=== PATIENT | male | born 1950 | race Caucasian/White ===

== ENCOUNTER 2017-09-09 08:35 | Emergency (ER) | payer MEDICARE, OTHER ==
[2017-09-09 08:39] VITALS: BP 146/96; PULSE 83; TEMP 98.8; BMI 31.5
--- NOTE | 2017-09-09 08:57 | PDOC ---
History of Present Illness - General Chief Complaint: Pain Stated Complaint: ABDOMINAL PAIN Time Seen by Provider: 09/09/17 08:52 History Source: Patient Exam Limitations: Language Barrier ([employer] used [id number]) - History of Present Illness Initial Comments: 09/09/17 09:47 Patient is a 66-year-old male who presents to emergency department today with a lump to his left abdomen. Patient states that he noticed the lump approximately 1 week ago. He states it does not hurt but it has grown in size. Denies fevers, chills, nausea, vomiting and diarrhea. Past History - Travel Traveled outside of the country in the last 30 days: No Close contact w/someone who was outside of country & ill: No - Past Medical History Allergies/Adverse Reactions: Allergies Allergy/AdvReac Type Severity Reaction Status Date / Time No Known Allergies Allergy Verified 09/09/17 08:39 Home Medications: Ambulatory Orders Aspirin [Aspirin EC] 81 mg PO DAILY 11/02/14 Cyclobenzaprine HCl [Flexeril -] 10 mg PO TID PRN 11/02/14 Glipizide Xl [Glucotrol Xl -] 10 mg PO DAILY 11/02/14 Pioglitazone HCl [Actos -] 30 mg PO DAILY 11/02/14 Simvastatin [Zocor -] 40 mg PO HS 11/02/14 COPD: No Diabetes: Yes HTN: Yes Hypercholesterolemia: Yes - Immunization History Immunization Up to Date: Yes - Suicide/Smoking/Psychosocial Hx Smoking History: Never smoked Hx Alcohol Use: No Substance Use Type: None Review of Systems - Review of Systems Able to Perform ROS?: Yes Comments:: 09/09/17 08:57 CONSTITUTIONAL: Absent: fever, chills, diaphoresis, generalized weakness, malaise, loss of appetite HEENT: Absent: rhinorrhea, nasal congestion, throat pain, throat swelling, difficulty swallowing, mouth swelling, ear pain, eye pain, visual Changes CARDIOVASCULAR: Absent: chest pain, loss of consciousness, palpitations, irregular heart rate, peripheral edema RESPIRATORY: Absent: cough, shortness of breath, dyspnea with exertion, orthopnea, wheezing, stridor, hemoptysis GASTROINTESTINAL: Absent: abdominal pain, abdominal distension, nausea, vomiting, diarrhea, constipation, melena, hematochezia GENITOURINARY: Absent: dysuria, frequency, urgency, hesitancy, hematuria, flank pain, genital pain MUSCULOSKELETAL: Absent: myalgia, arthralgia, joint swelling SKIN: Present: Lump to L abdomen Absent: rash, itching, pallor HEMATOLOGIC/IMMUNOLOGIC: Absent: easy bleeding, easy bruising, lymphadenopathy, frequent infections ENDOCRINE: Absent: unexplained weight gain, unexplained weight loss, heat intolerance, cold intolerance NEUROLOGIC: Absent: headache, focal weakness or paresthesias, dizziness, unsteady gait, seizure, mental status changes, bladder or bowel incontinence PSYCHIATRIC: Absent: anxiety, depression, suicidal or homicidal ideation, hallucinations. Is the patient limited [place] proficient: No *Physical Exam - Vital Signs Last Vital Signs Temp Pulse Resp BP Pulse Ox 98.8 F 83 18 146/96 99 09/09/17 08:37 09/09/17 08:37 09/09/17 08:37 09/09/17 08:37 09/09/17 08:37 - Physical Exam Comments: 09/09/17 08:57 GENERAL: Well developed, well nourished. Awake and alert. No acute distress. ABDOMINAL: Soft. Non-tender. Non-distended. No rebound or guarding. No organomegaly. Normoactive bowel sounds. MUSCULOSKELETAL Normal range of motion at all joints. No bony deformities or tenderness. No CVA tenderness. EXTREMITIES: No cyanosis. No clubbing. No edema. No calf tenderness. SKIN: Mobile, kamilla sized, round mass felt in the subcutaneous tissue of the L abdomen. Warm and dry. Normal capillary refill. No rashes. No jaundice. NEUROLOGICAL: Alert, awake, appropriate. Cranial nerves 2-12 intact. No deficits to light touch and temperature in face, upper extremities and lower extremities. No motor deficits in the in face, upper extremities and lower extremities. Normoreflexic in the upper and lower extremities. Normal speech. Toes are down- going bilaterally. Gait is normal without ataxia. PSYCHIATRIC: Cooperative. Good eye contact. Appropriate mood and affect. Medical Decision Making - Medical Decision Making 09/09/17 09:59 Patient is a 66-year-old male who presents emergency department today complaining of a lump to his left abdomen. On exam the bump is mobile approximately the size of a nickel and round. Ultrasound obtained is patient was concerned it could possibly be cancer. Ultrasound results show possible fibroma versus fibrolipoma. Results discussed with the patient. Will give a surgical consult in case the bump ever becomes painful or larger. Return precautions given. Patient says all discharge instructions and all questions were answered. *DC/Admit/Observation/Transfer Diagnosis at time of Disposition: Fibrolipoma of skin - Discharge Dispostion Disposition: HOME Condition at time of disposition: Stable Decision to Admit order: No - Referrals Referrals: Pop Kennedy MD [Staff Physician] - - Patient Instructions Printed Discharge Instructions: Lipoma Additional Instructions: Your evaluated for a lump on you abdomen. The ultrasound shows that it is most likely a benign lipoma (fatty tissue deposit) It may fluctuate in size. If it starts to get larger or if it is painful please follow-up with surgery. A referral has been provided to you. Follow-up with your primary care doctor this week. Return to the emergency department if you have pain, fevers, chills, nausea, vomiting, or have any changes in your symptoms. Hernandez evaluado por un bulto en hernandez abdomen. El ultrasonido muestra que es ms probable que sea un lipoma willy (depsito de tejido adiposo) Puede fluctuar en tamao. Si comienza a agrandarse o si es doloroso, realice un seguimiento con ciruga. Se le juarez proporcionado artis referencia. Brayden un seguimiento con hernandez mdico de atencin primaria esta semana. Regrese al departamento de emergencias si tiene dolor, fiebre, escalofros, n useas, vmitos o algn cambio en princess sntomas. Print Language: NIGERIEN - Post Discharge Activity
== END 2017-09-09 10:43 | disposition home or self-care (01) ==
LOC: JER 08:35 → JERFT 08:35
DX: D17.79 Benign lipomatous neoplasm of other sites (principal); I10 Essential (primary) hypertension; E78.00 Pure hypercholesterolemia, unspecified; E11.9 Type 2 diabetes mellitus without complications; Z79.84 Long term (current) use of oral hypoglycemic drugs
CPT/HCPCS: 76705; 99281-25

== ENCOUNTER 2019-01-08 08:34 | Emergency (ER) | payer MEDICARE, OTHER ==
[2019-01-08 08:46] VITALS: BMI 31.5
--- NOTE | 2019-01-08 10:01 | PDOC ---
History of Present Illness - General Chief Complaint: Diarrhea Stated Complaint: DIARRHEA X 4 WEEKS Time Seen by Provider: 01/08/19 09:00 History Source: Patient Exam Limitations: No Limitations - History of Present Illness Travel History: No Initial Comments: 01/08/19 10:00 68-year-old male presents to ED with malaise of brown watery stool for the past 4 weeks nausea vomiting fever or chills. Patient does state was sent [place] and symptoms began approximately 3 days into his vacation. Patient states symptoms continue and are aggravated but alleviated with Imodium. Patient denies GI history including diverticulitis, H pylori, or other GI disorders. Patient denies weight loss, change in appetite or abdominal distention. Timing/Duration: reports: intermittent Quality: reports: mild, cramping Abdominal Pain Onset Location: reports: RLQ, LLQ Pain Radiation: reports: no radiation Activities at Onset: reports: none Aggravating Factors: improves with: None Alleviating Factors: improves with: None Past History - Travel Traveled outside of the country in the last 30 days: No Close contact w/someone who was outside of country & ill: No - Past Medical History Allergies/Adverse Reactions: Allergies Allergy/AdvReac Type Severity Reaction Status Date / Time No Known Allergies Allergy Verified 01/08/19 08:46 Home Medications: Ambulatory Orders Aspirin [Aspirin EC] 81 mg PO DAILY 11/02/14 Cyclobenzaprine HCl [Flexeril -] 10 mg PO TID PRN 11/02/14 Glipizide Xl [Glucotrol Xl -] 10 mg PO DAILY 11/02/14 Pioglitazone HCl [Actos -] 30 mg PO DAILY 11/02/14 Simvastatin [Zocor -] 40 mg PO HS 11/02/14 Diphenoxylate 2.5/Atropine.025 [Lomotil -] 1 combo PO DAILY PRN #30 tablet MDD 1 01/08/19 COPD: No Diabetes: Yes HTN: Yes Hypercholesterolemia: Yes - Immunization History Immunization Up to Date: Yes - Suicide/Smoking/Psychosocial Hx Smoking History: Never smoked Have you smoked in the past 12 months: No Information on smoking cessation initiated: No Hx Alcohol Use: No Drug/Substance Use Hx: No Substance Use Type: None Patient Lives Alone: No Lives with/in: spouse/SO Review of Systems - Review of Systems Able to Perform ROS?: Yes Constitutional: No: Symptoms Reported HEENTM: No: Symptoms Reported Respiratory: No: Symptoms reported Cardiac (ROS): No: Symptoms Reported ABD/GI: Yes: Diarrhea, Abdominal cramping : No: Symptoms Reported Musculoskeletal: No: Symptoms Reported Integumentary: No: Symptoms Reported Neurological: No: Symptoms reported Hematologic/Lymphatic: No: Symptoms Reported *Physical Exam - Vital Signs Last Vital Signs Temp Pulse Resp BP Pulse Ox 97.8 F 66 17 147/85 100 01/08/19 08:41 01/08/19 08:41 01/08/19 08:41 01/08/19 08:41 01/08/19 08:41 - Physical Exam General Appearance: Yes: Nourished, Appropriately Dressed. No: Apparent Distress HEENT: negative: Pale Conjunctivae Respiratory/Chest: positive: Lungs Clear, Normal Breath Sounds. negative: Respiratory Distress, Accessory Muscle Use Cardiovascular: positive: Regular Rhythm, Regular Rate. negative: Murmur Gastrointestinal/Abdominal: positive: Normal Bowel Sounds, Soft. negative: Distended, Guarding, Tenderness Musculoskeletal: negative: CVA Tenderness Extremity: positive: Normal Range of Motion Integumentary: positive: Normal Color, Warm, Moist Neurologic: positive: Motor Strength 5/5 (AMBULATORY) ED Treatment Course - LABORATORY CBC & Chemistry Diagram: 01/08/19 08:49 01/08/19 08:49 - RADIOLOGY Radiology Studies Ordered: Category Date Time Status ABDOMEN & PELVIS CT WITH CONTR [CT] Stat CT Scan 01/08/19 09:02 Ordered Medical Decision Making - Medical Decision Making 01/08/19 10:03 Chief complaint: Brown watery stool approximately 4 times a day for the past month. Patient states symptoms began 3 days after arriving in [facility]. Patient denies fever, chills and states symptoms do resolve with Imodium but only to return the next day. Patient denies weight loss, change in appetite or abdominal distention. Exam: Appear normal, distention no abdominal tenderness. Plan: Stool specimens including C. difficile, stool culture and ovum parasite. Patient also ordered for basic labs and abdominal CT with contrast. 01/08/19 14:18 Laboratory Tests 01/08/19 01/08/19 08:49 08:49 WBC 5.1 Hgb 13.3 Hct 39.2 Absolute Neuts (auto) 2.7 Sodium 138 Potassium 4.5 Chloride 100 Carbon Dioxide 34 H Anion Gap 4 L BUN 17.4 Creatinine 0.9 Random Glucose 174 H Calcium 9.5 Total Bilirubin 0.7 AST 9 L ALT 16 Alkaline Phosphatase 67 Total Protein 7.4 Albumin 4.1 Cl diff - on preliminary report. 01/08/19 14:[address] shows no discrete inflammatory changes of bowels. Mild adrenal thickening which may be on the basis of hyperplasia or subcentimeter ademonas *DC/Admit/Observation/Transfer Diagnosis at time of Disposition: Diarrhea - Discharge Dispostion Disposition: HOME Condition at time of disposition: Good - Prescriptions Prescriptions: Diphenoxylate 2.5/Atropine.025 [Lomotil -] 1 combo PO DAILY PRN #30 tablet MDD 1 PRN Reason: Diarrhea - Referrals Referrals: Faheem Elliott MD [Primary Care Provider] - - Patient Instructions Printed Discharge Instructions: DI for Diarrhea and Traveler's Diarrhea -- Adult Additional Instructions: Please take lomotil as prescribed. Follow diet as discussed. You will be contacted of your stool results - Post Discharge Activity
[2019-01-08 10:06] LABS: BASO % 0.7 % (0-2.0); EOS % 3.6 % (0-4.5); HEMATOCRIT 39.2 % (35.4-49); HEMOGLOBIN 13.3 GM/dL (11.7-16.9); LYMPH % 36.1 % (8-40); MCH 28.1 pg (25.7-33.7); MEAN CELL VOLUME 82.8 fl (80-96); MONO % 6.5 % (3.8-10.2); NEUT % 53.1 % (42.8-82.8); PLATELET COUNT 282 K/MM3 (134-434); RBC 4.73 M/mm3 (4.00-5.60); RDW 14.6 % (11.9-15.9); WHITE BLOOD COUNT 5.1 K/mm3 (4.0-10.0)
[2019-01-08 10:18] LABS: ALBUMIN 4.1 g/dl (3.4-5.0); BILIRUBIN,TOTAL 0.7 mg/dL (0.2-1); BLOOD UREA NITROGEN 17.4 mg/dL (7-18); CALCIUM 9.5 mg/dL (8.5-10.1); CREATININE 0.9 mg/dL (0.55-1.3); POTASSIUM 4.5 mmol/L (3.5-5.1); TOT PROT 7.4 g/dl (6.4-8.2)
[2019-01-08 14:46] VITALS: BP 138/82; PULSE 78; TEMP 98.8
== END 2019-01-08 14:15 | disposition home or self-care (01) ==
LOC: JER 08:34
DX: R19.7 Diarrhea, unspecified (principal); I10 Essential (primary) hypertension; E78.00 Pure hypercholesterolemia, unspecified; E11.9 Type 2 diabetes mellitus without complications; Z79.84 Long term (current) use of oral hypoglycemic drugs
CPT/HCPCS: 36415; 74177-TC; 80053; 85025; 87045; 87046; 87324; 87449; 99283-25

== ENCOUNTER 2021-01-07 09:11 | Emergency (ER) | payer MEDICARE ==
[2021-01-07 09:16] VITALS: BP 166/91; PULSE 68; BMI 30.1
[2021-01-07 11:26] LABS: BASO % 1.2 % (0-2.0); EOS % 4.8 % (0-4.5); HEMATOCRIT 35.2 % (35.4-49); HEMOGLOBIN 12.2 GM/dL (11.7-16.9); LYMPH % 49.9 % (8-40); MCH 28.3 pg (25.7-33.7); MCHC 34.6 g/dl (32.0-35.9); MEAN CELL VOLUME 81.7 fl (80-96); MEAN PLT VOLUME 8.9 fl (7.5-11.1); MONO % 7.9 % (3.8-10.2); NEUT % 36.2 % (42.8-82.8); PLATELET COUNT 302 10^3/uL (134-434); RBC 4.31 M/mm3 (4.00-5.60); RDW 14.5 % (11.9-15.9); WHITE BLOOD COUNT 4.7 K/mm3 (4.0-10.0)
[2021-01-07 11:41] LABS: CALCIUM 9.1 mg/dL (8.5-10.1)
[2021-01-07 11:42] LABS: ALBUMIN 3.8 g/dl (3.4-5.0); BLOOD UREA NITROGEN 18.6 mg/dL (7-18)
[2021-01-07 11:45] LABS: BILIRUBIN,TOTAL 0.5 mg/dL (0.2-1); TOT PROT 7.6 g/dl (6.4-8.2)
[2021-01-07] MEDS ORDERED: KETOROLAC TROMETHAMINE 15 MG/ML VIAL IVPUSH ONE (12:11)
[2021-01-07] MEDS ORDERED: KETOROLAC TROMETHAMINE 15 MG/ML VIAL ONE (12:18)
== END 2021-01-07 13:21 | disposition home or self-care (01) ==
LOC: JER 09:11
PROC: 3E0333Z Introduction of Anti-inflammatory into Peripheral Vein, Percutaneous Approach (ICD-10-PCS; principal; 2021-01-07)
DX: R10.12 Left upper quadrant pain (principal)
CPT/HCPCS: 36415; 80053; 83690; 85025; 93005; 93010; 96374; 99284-25

== ENCOUNTER 2021-06-14 11:06 | Emergency (ER) | payer MEDICARE ==
[2021-06-14 11:15] VITALS: BP 153/88; PULSE 77; TEMP 98.1; BMI 28.7
[2021-06-14] MEDS ORDERED: LIDOCAINE 5% TOPICAL PATCH TP ONE (12:57)
[2021-06-14] MEDS ORDERED: LIDOCAINE 5% TOPICAL PATCH ONE (12:58)
[2021-06-14] MEDS ORDERED: LIDOCAINE PATCH REMOVAL MC SCH (22:00)
== END 2021-06-14 13:31 | disposition home or self-care (01) ==
LOC: JERFT 11:06
DX: M25.511 Pain in right shoulder (principal)
CPT/HCPCS: 73030-TC-RT-FY; 99283-25

== ENCOUNTER 2023-01-29 11:22 | Emergency (ER) | payer MEDICARE ==
[2023-01-29 11:27] VITALS: BP 142/84; PULSE 71; RESP 18; TEMP 98.3; BMI 28.7
== END 2023-01-29 14:00 | disposition home or self-care (01) ==
LOC: JERFT 11:22
DX: R09.89 Other specified symptoms and signs involving the circulatory and respiratory systems (principal); R51.9 Headache, unspecified; R42 Dizziness and giddiness; J06.9 Acute upper respiratory infection, unspecified; Z20.822 Contact with and (suspected) exposure to COVID-19
CPT/HCPCS: 0241U-QW; 99283-25